=== PATIENT | female | born 1970 | race Caucasian/White ===

== ENCOUNTER 2021-12-07 18:44 | Emergency (ER) | payer SELFPAY ==
[~2021-12-07] VITALS: Ht 167.6 cm; Wt 54.4 kg
--- NOTE | 2021-12-07 18:53 | NUR ---
BIB SELF C/O L SIDED FACIAL PAIN AND NUMBNESS FOR 2 WEEKS.
[2021-12-07 18:58] VITALS: BP 127/92
[2021-12-07] MEDS ORDERED: IBUP-1953 PO (19:37)
[2021-12-07] MEDS ORDERED: AMOX875T2 PO (19:37)
== END 2021-12-07 19:54 | disposition home or self-care (01) ==
LOC: ER 18:57
DX: H66.92 Otitis media, unspecified, left ear (principal); Z60.2 Problems related to living alone; Z79.899 Other long term (current) drug therapy